=== PATIENT | male | born 1955 | race Caucasian/White ===

== ENCOUNTER → 2021-03-11 19:59 | Outpatient (REF) | payer OTHER, SELFPAY | LOC: HO.SL 19:59 | PROVIDERS: PCP Nurse Practitioner Family; Visit Provider Nurse Practitioner Family | DX: G47.33 Obstructive sleep apnea (adult) (pediatric) (principal); J44.9 Chronic obstructive pulmonary disease, unspecified | CPT/HCPCS: 95810 ==

== ENCOUNTER → 2022-07-10 09:36 | Outpatient (BNVA) | payer OTHER, SELFPAY | PROVIDERS: PCP Nurse Practitioner Family; Visit Provider Psychiatry & Neurology Neurology | DX: R25.1 Tremor, unspecified (principal); G43.109 Migraine with aura, not intractable, without status migrainosus | CPT/HCPCS: 99202 ==

== ENCOUNTER → 2022-11-11 13:36 | Outpatient (BNVA) | payer OTHER, SELFPAY | PROVIDERS: PCP Nurse Practitioner Family; Visit Provider Psychiatry & Neurology Neurology | DX: G43.109 Migraine with aura, not intractable, without status migrainosus (principal); R25.1 Tremor, unspecified | CPT/HCPCS: 99212 ==

== ENCOUNTER 2023-11-18 14:11 | Outpatient (AMB) | payer OTHER, SELFPAY ==
--- NOTE | 2023-11-18 14:26 | MHC.OFFVIS ---
Vital Signs 11/18/23 14:27 Height 5 ft 6.5 in Weight 175 lb 6 oz BMI 27.9 BP 110/66 Blood Pressure Location Rt brachial Position Sitting Respiration 17 Pulse 79 Pulse Source Pulse Oximeter Pulse Oximetry (%) 95 Oxygen Delivery Method Room Air Intake Visit Reasons: 4m f/u Increase tremors body/head - Confirmed Intake Note: Pt presents to the office for one year follow up for tremors and migraine headaches. 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 Allergies amoxicillin Allergy (Severe, Verified 11/18/23 14:27) Vomiting Medication List - Last Reconciled 11/18/23 by Kalli Madden MD albuterol sulfate 90 mcg/actuation 1 inh inhalation QID aripiprazole 7.5 mg PO BEDTIME carbidopa-levodopa 25-100 mg (Sinemet) 1 tab PO TID gabapentin 300 mg PO TID ipratropium bromide 2.5 mL inhalation Q6H PRN omeprazole 20 mg PO DAILY ondansetron 8 mg PO Q12H roflumilast 500 mcg PO DAILY tiotropium bromide 2.5 mcg/actuation 2 inhalations inhalation QAM HPI Comments Details: 68y/o male comes for follow up of generalized tremors that started about 12 mths ago ago. No change since last visit . The tremors are mostly in his hands, but also has generalized body tremors, leg tremors, internal tremors. The tremors are postural and action and sometimes with rest. He has trouble writing, eating , drinking. He was started on carbidopa/levodopa 25/100 tid but he did not notice improvement.I suggested to taper but looks like he is still on sinemet. 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 He had multiple head injures when young He also has chronic back pain and takes gabapentin. He denies any recent falls. He has some tongue movements that may affect his speech. He has trouble staying asleep.He denies nay memory issues. he also reports right temporal headaches with blurry vision, photophobia, phonophobia, nausea and can last 24 hrs. He has visual aura. He is not sure if sumatriptan helps. He has 4-5 headaches a week. [facility] Medical History Chronic migraine with aura Vitamin B 12 deficiency Lumbar radiculopathy Hyperlipidemia Chronic pain Bipolar 1 disorder Anemia Opioid dependence Current smoker Concussion Headache Anxiety Tremors of nervous system Insomnia Depression COPD (chronic obstructive pulmonary disease) Arthritis Surgical History History of back surgery Social History Alcohol intake: never Patient Tobacco Use Status: Current everyday Tobacco user Physical Exam Vital Signs: Last Vital Signs Pulse 79 11/18/23 14:27 Resp 17 11/18/23 14:27 BP 110/66 11/18/23 14:27 Pulse Ox 95 11/18/23 14:27 Oxygen Delivery Method Room Air 11/18/23 14:27 BMI result Body Mass Index 27.9 Const General: cooperative, healthy appearing and comfortable Nutritional Appearance: average body habitus Orientation/consciousness: patient oriented x3 Limitations: no limitations HEENT Head: Yes normal to inspection Eyes Pupils: Equal, round and reactive pupils present Neuro Other: mild tongue and lower chin tremors Pancho UE mild postural and action tremors LE intermittent tremors No cog wheel rigidity Good facial expression and blink FFM and foot taps normal Speech - mild hypophonia General: patient oriented x3, tone normal and moves all extremities Cranial nerves: Yes Facial sensation intact/muscles of mastication intact, Yes Equal, round and reactive pupils present, Yes Nystagmus not present and Yes Normal facial strength present Cognition (Neuro): normal cognition Gait exam (Neuro): Normal gait present and Antalgic gait present Motor exam (neuro): 5/5 motor strength present throughout Coordination: [id number] test normal Psych Appearance: grossly normal Assessment & Plan Assessment & Plan (1) Tremors of nervous system: Comment: multifactorial , due to neuroleptics and exposure to lithium Code(s): R25.1 - Tremor, unspecified Category: Medical (2) Chronic migraine with aura: Code(s): G43.109 - Migraine with aura, not intractable, without status migrainosus Category: Medical Plan Increase Gabapentin 600mg tid which can help to decrease migraines and tremors sinemet 25/100 tid Medications: Changed From gabapentin 300 mg PO TID 90 caps 3RF To gabapentin 600 mg (2 x 300 mg) PO TID 180 caps 3RF Coding Level of Care Code Est Pt Level 4 (27472) Diagnoses Tremors of nervous system R25.1 Chronic migraine with aura G43.109
[2023-11-18 14:27] VITALS: BP 110/66; PULSE 79; RESP 17; O2SAT 95; BMI 27.9
== END 2023-11-18 14:46 | disposition home or self-care (01) ==
PROVIDERS: PCP Nurse Practitioner Family; Referring Provider Internal Medicine Endocrinology, Diabetes & Metabolism; Visit Provider Psychiatry & Neurology Neurology
DX: R25.1 Tremor, unspecified (principal); G43.109 Migraine with aura, not intractable, without status migrainosus
CPT/HCPCS: 99214

== ENCOUNTER → 2023-11-18 14:11 | Outpatient (BNVA) | payer OTHER, SELFPAY | PROVIDERS: PCP Nurse Practitioner Family; Visit Provider Psychiatry & Neurology Neurology | DX: R25.1 Tremor, unspecified (principal); G43.E09 Chronic migraine with aura, not intractable, without status migrainosus | CPT/HCPCS: 99212 ==